=== PATIENT | female | born 1980 | race Asian ===

== ENCOUNTER 2022-05-16 08:37 | Emergency (ER) | payer MEDICARE, SELFPAY ==
[2022-05-16 08:47] VITALS: BP 114/80; PULSE 93; RESP 18; TEMP 36.9; O2SAT 100; BMI 27.8
[2022-05-16 09:34] LABS: Appearance Urine Clear (Clear); Bilirubin Urine Negative (Negative); Blood Urine 2+ (Negative); Color Urine Yellow (Yellow); Glucose Urine Negative (Negative); Ketones Urine Negative (Negative); Leukocyte Esterase Urine Negative (Negative); Nitrite Urine Negative (Negative); Protein Urine Negative (Negative); Specific Gravity Urine 1.015 (1.000-1.030); Urobilinogen Urine 0.2 (0.2-1.0)
[2022-05-16] MEDS: 0.9 % SODIUM CHLORIDE 1000 ml 1,000 ML IV (09:35)
[2022-05-16] MEDS: ONDANSETRON 2 MG/ML inj 4 MG IVP (09:35)
--- NOTE | 2022-05-16 09:45 | ED.GENADULT ---
HPI - General Adult General Chief complaint: Urogenital Problems, Female Stated complaint: possible kidney stones Time Seen by Provider: 05/16/22 08:41 Source: patient Mode of arrival: ambulatory Limitations: no limitations History of Present Illness HPI narrative: 41-year-old female coming in today complaining of pelvic pain. Patient states that she has recurrent kidney stones and this feels like a kidney stone. She states that the pain started 5 days ago in the right flank area and now has traveled into the right groin. She states that her urine is cloudy but has not seen any blood. She states that she vomited this morning and feels nauseated but denies any fevers or chills. She denies any diarrhea. She denies any pain in the upper abdomen. She tells me that she has had 78 kidney stones in the last 13 months and has required multiple basket extractions. She tells me that she rarely comes to the ER however for treatment. She states that when she does come to the ER it is because she just can not manage the pain at home and she receives an IV medication that starts with a D. We discussed imaging also, and the patient states that she generally does not require an abdominal CT scan. She told me that I am welcome to do 1 if I feel that 1 is necessary. We discussed that with the amount of stones that she has had over the last year I would be concerned about scanning her given the amount of radiation that she may be receiving, she states that again she rarely gets an abdominal CT scan. Patient states that she has a seizure disorder for which she takes Keppra Topamax and Lamictal. She says that it is because of these medications that she gets recurrent kidney stones. Related Data Allergies Allergy/AdvReac Type Severity Reaction Status Date / Time bee pollen Allergy Verified 05/16/22 08:44 Review of Systems Status of ROS: Reports: 10 or more systems reviewed and unremarkable except as noted in History and below PFSH PFS Social History Smoking Status: Never smoker Do you use any of these nicotine containing products: None Second hand tobacco smoke exposure: Yes How often do you have a drink containing alcohol: monthly or less How many standard drinks containing alcohol do you have on a typical day: 3 or 4 How often do you have six or more drinks on one occasion: Less than monthly AUDIT-C Alcohol total score: 3 Non-prescribed substance use: denies use service: No Exam Narrative: Exam Narrative: Well-nourished well-developed patient, tearful. Alert and oriented. Answers questions appropriately. Patient speaks in full sentences without needing to catch their breath. HEENT: Normocephalic atraumatic. Pupils are equally round reactive to light. Extraocular muscles are intact. Conjunctivae are moist without any icterus noted. Moist mucous membranes. Posterior pharynx is normal. Neck is soft without any lymphadenopathy or thyromegaly. No masses are appreciated. Cardiovascular: Heart is regular rate and rhythm S1 and S2 are present without any murmurs. Lungs: Clear to auscultation bilaterally no wheezes rhonchi or rales are appreciated. Patient takes deep breaths without any discomfort. Abdomen: Soft and nontender nondistended with normal bowel sounds. No guarding or rebound. No masses or organomegaly appreciated. Patient cries and groans in pain with palpation of the suprapubic area. Extremities: Bilateral lower extremities are without edema. Normal DP and PT pulses. Skin: Well perfused without any obvious rashes. Const: Vital Signs, click to edit/add: Vital Signs - 24 hr 05/16/22 08:47 Temperature 98.5 F Pulse Rate [Pulse Oximeter] 93 Respiratory Rate 18 Blood Pressure [Ri ght Upper Arm] 114/80 Pulse Oximetry 100 Oxygen Delivery Me thod Room Air Course Course Hospital Course: IV was established and IV fluids started. Again, we discussed imaging-at this point patient feels like if we give her fluids she can give this another few days at home to see if the stone will pass on its own. Given that she is not febrile we opted not to do imaging at this time. If her labs come back abnormal we may reconsider this. We discussed pain medication, I did look the patient up in the [place] prescription monitoring web site, it appears that she received 80 tablets of oxycodone 11 days ago. It appears that she receives regular oxycodone prescriptions. She tells me that she does not have any of her oxycodone because she went to [place] to visit her family and she put all of her medications in her suitcase, her suitcase ended up in [place]. She is asking for narcotic pain medicine today. I tell her that I will not be giving her narcotic pain medications today. I did talk about Toradol which she tells me does not work. Unfortunately, given her history of chronic narcotic use I do not feel that giving her IV narcotics is inappropriate at this time. She states that she will accept the Toradol. Blood work was unremarkable. No elevated CRP or white cell count. She did have some blood in her urine. Given her normal creatinine we did go ahead and proceed with the Toradol, we also gave her Zofran. Blood glucose was also slightly low at 50, this came up to 102 after she had some juice. She was asymptomatic from this. Vital Signs Vital signs: Initial Vital Signs Temperature 98.5 F 05/16/22 08:47 Temperature Source Temporal Artery Scan 05/16/22 08:47 Pulse Rate 93 05/16/22 08:47 Pulse Rhythm Regular 05/16/22 08:47 Respiratory Rate 18 05/16/22 08:47 Blood Pressure 114/80 05/16/22 08:47 Blood Pressure Mean 91 05/16/22 08:47 Blood Pressure Position Supine 05/16/22 08:47 Pulse Oximetry 100 05/16/22 08:47 Oxygen Delivery Method Room Air 05/16/22 08:47 Vital Signs Temperature 98.5 F 05/16/22 08:47 Pulse Rate 93 05/16/22 08:47 Respiratory Rate 18 05/16/22 08:47 Blood Pressure 114/80 05/16/22 08:47 Pulse Oximetry 100 05/16/22 08:47 Oxygen Delivery Method Room Air 05/16/22 08:47 Temperature 98.5 F 05/16/22 08:47 Pulse Rate 93 05/16/22 08:47 Respiratory Rate 18 05/16/22 08:47 Blood Pressure 114/80 05/16/22 08:47 Pulse Oximetry 100 05/16/22 08:47 Oxygen Delivery Method Room Air 05/16/22 08:47 Medical Decision Making MDM Narrative Medical decision making narrative: 41-year-old female with recurrent kidney stones. At this time I asked her to call her primary care provider if she wants a refill on her narcotic pain medication. We discussed returning to the ER if she develops fever or intractable vomiting. She does have a urologist and hris administrator that she follows up with regularly, she is instructed to call them today to make an appointment. Patient was agreeable with everything we discussed had no other questions. Lab Data Lab results reviewed: Yes I reviewed the patient's lab results Labs: Lab Results 05/16/22 05/16/22 05/16/22 Range/Units 09:20 09:25 09:35 WBC 7.35 (4.50-11.00) K/uL RBC 4.11 (4.00-5.20) m/uL Hgb 15.0 (12.0-16.0) gm/dL Hct 44.7 (33.0-51.0) % MCV 109 H (80-100) fL MCH 37 H (26-34) pg MCHC 34 (32-36) gm/dL RDW Coeff of Braydon 12.5 (11.5-15.5) % Plt Count 276 (140-440) K/uL Neut % (Auto) 63.0 (42.0-72.0) % Lymph % (Auto) 26.7 (20-44) % [place] % (Auto) 7.5 (0.0-11.0) % Eos % (Auto) 2.3 (0.0-7.0) % Baso % (Auto) 0.4 (0.0-3.0) % Neut # (Auto) 4.63 (1.7-7.0) K/uL Lymph # (Auto) 1.96 (0.90-2.90) K/uL [place] # (Auto) 0.60 (0.00-0.90) K/UL Eos # (Auto) 0.17 (0.00-0.50) K/uL Baso # (Auto) 0.03 (0.00-0.30) K/uL Sodium 141 (135-149) mmol/L Potassium 3.4 L (3.6-5.1) mmol/L Chloride 114 (96-114) mmol/L Carbon Dioxide 17 L (20-32) mmol/L BUN 10 (5-24) mg/dL Creatinine 1.1 (0.5-1.5) mg/dL Estimated Creat Clear 50.27 Estimated GFR 64 ml/min Glucose 50 L (60-115) mg/dL Calcium 9.1 (8.4-10.6) mg/dL Total Bilirubin 0.4 (0.1-1.5) mg/dL Direct Bilirubin 0.0 (0.0-0.5) mg/dL AST 18 (12-35) U/L ALT 16 (4-35) U/L Alkaline Phosphatase 65 (40-150) U/L C-Reactive Protein < 0.5 L (0.5-1.0) mg/dL Total Protein 7.9 (6.0-8.3) g/dL Albumin 4.7 (3.3-5.0) g/dL Lipase 52 (23-300) U/L HCG, Qual Negative (Negative) Urine Color Yellow (Yellow) Urine Appearance Clear (Clear) Urine pH 6.0 (5.0-8.5) Ur Specific [place] 1.015 (1.000-1.030) Urine Protein Negative (Negative) Urine Glucose (UA) Negative (Negative) Urine Ketones Negative (Negative) Urine Blood 2+ A (Negative) Urine Nitrite Negative (Negative) Urine Bilirubin Negative (Negative) Urine Urobilinogen 0.2 (0.2-1.0) Ur Leukocyte Esterase Negative (Negative) Urine RBC 5-10 A (0-2) Urine WBC 2-5 (0-5) Ur Squamous Epith Cells Moderate A (None-Few) Urine Bacteria None (None) Discharge Plan Discharge Clinical Impression: Kidney stone Patient Disposition: Home, Self-Care Condition: Stable Additional Instructions: Follow-up with your primary care provider if you need refills of your pain medication. Follow-up with your urologist this coming week. Return to the emergency department if you develop intractable vomiting or fevers. Follow Up/Referrals: Ketty Osborn [Primary Care Provider] - Stand Alone Forms: CoreFlow Info Instructions
[2022-05-16 09:49] LABS: Squamous Epithelial Cell Urine Moderate (None-Few)
[2022-05-16 09:51] LABS: Basophils Absolute Auto 0.03 K/uL (0.00-0.30); Basophils Percent Auto 0.4 % (0.0-3.0); Eosinophils Absolute Auto 0.17 K/uL (0.00-0.50); Eosinophils Percent Auto 2.3 % (0.0-7.0); Hematocrit 44.7 % (33.0-51.0); Immature Granulocytes Abs Auto 0.01 K/uL (0.00-0.30); Immature Granulocytes Pct Auto 0.1 %; Lymphocytes Absolute Auto 1.96 K/uL (0.90-2.90); Lymphocytes Percent Auto 26.7 % (20-44); Mean Corpuscular HGB Conc 34 gm/dL (32-36); Mean Corpuscular Hemoglobin 37 pg (26-34); Mean Corpuscular Volume 109 fL (80-100); Monocytes Percent Auto 7.5 % (0.0-11.0); Neutrophils Absolute Auto 4.63 K/uL (1.7-7.0); Platelet Count* 276 K/uL (140-440); RDW Coefficient of Variation % 12.5 % (11.5-15.5); Red Blood Count 4.11 m/uL (4.00-5.20); White Blood Count* 7.35 K/uL (4.50-11.00)
[2022-05-16 09:54] LABS: Slide Review Reflex No
[2022-05-16 10:03] LABS: Albumin* 4.7 g/dL (3.3-5.0)
[2022-05-16 10:04] LABS: Chloride* 114 mmol/L (96-114); Potassium* 3.4 mmol/L (3.6-5.1); Sodium* 141 mmol/L (135-149)
[2022-05-16 10:06] LABS: Alanine Aminotransferase* 16 U/L (4-35); Alkaline Phosphatase* 65 U/L (40-150); Aspartate Amino Transferase* 18 U/L (12-35); Bilirubin Total* 0.4 mg/dL (0.1-1.5); Lipase* 52 U/L (23-300); Total Protein* 7.9 g/dL (6.0-8.3)
[2022-05-16 10:07] LABS: Blood Urea Nitrogen* 10 mg/dL (5-24); Carbon Dioxide* 17 mmol/L (20-32); Creatinine* 1.1 mg/dL (0.5-1.5); Est. Creatinine Clearance* 50.27; Estimated Glomerular Filt Rate 64 ml/min
[2022-05-16 10:08] LABS: Calcium* 9.1 mg/dL (8.4-10.6); Glucose* 50 mg/dL (60-115)
[2022-05-16 10:11] LABS: HCG Qualitative* Negative (Negative)
[2022-05-16 10:11] LABS: C Reactive Protein* < 0.5 mg/dL (0.5-1.0)
[2022-05-16] MEDS: KETOROLAC 30 MG/ML inj IVP (10:41)
--- NOTE | 2022-05-16 10:47 | ED.NURSE ---
1039-Glucose 50 on chem panel. Juice given by SHRUTHI Proctor per MD request.
[2022-05-16 11:00] VITALS: BP 115/76; PULSE 87; RESP 12; O2SAT 99
[2022-05-16 11:30] VITALS: BP 114/80; PULSE 93; RESP 18; TEMP 36.9
== END 2022-05-16 11:30 | disposition home or self-care (01) ==
PROVIDERS: Emergency Provider Family Medicine; PCP Internal Medicine
DX: N20.0 Calculus of kidney (principal)
CPT/HCPCS: 36415; 80048; 80076; 81001; 82962; 83690; 84703; 85025; 86140; 87086; 96374; 96375; 99284; J1885; J2405; J7030

== ENCOUNTER 2023-06-19 06:17 | Day surgery (SDC) | payer MEDICARE, SELFPAY ==
[2023-06-19] VITALS (14 sets, daily range): BP systolic 99–131; BP diastolic 77–106; PULSE 71–98; RESP 16–18; TEMP 36.2–36.7; O2SAT 97–100; BMI 28.0
--- OUTSIDE RECORDS SUMMARY | 2023-06-19 06:24 | XMS_ITS | Encounter Summary ---
Author Name Unknown Organization [facility] Address [address] [place] [address] Care Team Providers Care Meat Slicer Name Role Phone Elsewhere, Pcp Primary Care Provider Unavailabl e Reason for Visit * Reason Onset Date Comments Med Question 04/02/2023 Encounter Details Date Type Department Care Team (Late st Contact Info) Description 04/02/2023 Clinical Communication Department of Neurology in [place], [place] [address] [phone] Nakul Canela M.D. [address] [phone] Med Question Social History Tobacco Use Types Packs/Day Years Used Date Smoking Tobacco: Former Cigarettes Q uit: 10/18/2021 Smokeless Tobacco: Never Nutrition Answer Date Recorded Nutrition: EVOO Fat Source Unknown 04/10 Nutrition: Servings of Fruits/Vegetables per Day Not on file 04/10/2021 Dental Answer Date Recorded Dental: Regular Dentist Unknown 04/10/19 Sex and Gender Information Value Date Recorded Sex Assigned at Not on file Gender Identity Not on file Sexual Orientation Not on file documented as of this encounter Miscellaneous Notes * Telephone Encounter - Savannah Hernandez, L.P.N. - 04/02/2023 9:00 AM CST Patient stopped back after appointment today to ask about her butalbital refill. Please advise. Refill pended for review. Thank you. ING MACHINE FEEDER documented in this encounter Plan of Treatment Not on file documented as of this encounter Visit Diagnoses Not on filedocumented in this encounter Care Teams Meat Slicer Relationship Specialty Start Date End Date Elsewhere, Pcp PCP - General Internal Medicine 04/11/21 documented as of this encounter
--- OUTSIDE RECORDS SUMMARY | 2023-06-19 06:24 | XMS_ITS | Encounter Summary ---
Author Name Unknown Organization [facility] Address [address] [place] [address] Care Team Providers Care Data Center Engineer Name Role Phone Elsewhere, Pcp Primary Care Provider Unavailabl e Reason for Visit * Reason Comments Med Refill Encounter Details Date Type Department Care Team (Late st Contact Info) Description 05/22/2023 Refill Department of Neurology in [place], [place] [address] [place] [address] Nakul Canela M.D. [address], [place] [phone] Med Refill Social History Tobacco Use Types Packs/Day Years [...] Telephone Encounter - Savannah Hernandez, L.P.N. - 05/22/2023 9:49 AM CDT Pharmacy refill request for [id number] 50-325-40 mg Last filled 04/09/2023 #10, 0 refills Last visit 04/02/2023 Orders pended for your review. Thank you. documented in this encounter Plan of Treatment Not on file documented as of this encounter Visit Diagnoses Not on filedocumented in this encounter Care Teams Data Center Engineer Relationship Specialty Start Date End Date Elsewhere, Pcp PCP - General Internal Medicine 04/11/21 documented as of this encounter
--- OUTSIDE RECORDS SUMMARY | 2023-06-19 06:24 | XMS_ITS ---
Author Name Unknown Organization [facility] Address [address] [place] [address] Care Team Providers Care Concrete Polisher Name Role Phone Unavailable Unavailable Unavailable Surgery Details Not on file Complications Check Surgery Details section. Procedure Estimated Blood Loss Check Surgery Details section. Procedure Findings Check Surgery Details section. Procedure Specimens Taken Check Surgery Details section.
--- OUTSIDE RECORDS SUMMARY | 2023-06-19 06:24 | XMS_ITS | Encounter Summary ---
Author Name Unknown Organization [facility] Address [address] [place] [address] Care Team Providers Care Social Media Manager Name Role Phone Elsewhere, Pcp Primary Care Provider Unavailabl e Reason for Referral * Outpatient (Routine) - Authorized Specialty Diagnoses / Procedures Referred By Nghia kaufman Referred To Contact Neurology [facility] ([facility]) Nakul Canela M.D. [address], [place] [address] [facility] Referral ID Status Reason Start Date Expiration Date V isits Requested Visits Authorized [id number] Authorized 04/02/2023 10/01/2024 1 1 ERTY AND CASUALTY INSURANCE AGENT Reason for Visit * Reason Comments Seizures * Outpatient (Routine) - Closed Specialty Diagnoses / Procedures Referred By Nghia kaufman Referred To Contact Neurology Isaias Ernandez M.D., M.P.H. [address] [place] [address] [facility] Referral ID Status Reason Start Date Expiration Date Visits Re quested Visits Authorized [id number] Closed 12/18/2021 12/17/2024 1 1 Encounter Details Date Type Department Care Team (Latest Contact Info) Description 04/02/2023 8:00 AM PROPERTY AND CASUALTY INSURANCE AGENT Comprehensive Visit Department of Neurology in [place], [place] [address], [place] [address] Nakul Canela M.D. [address] [place] [phone] [facility] ([facility]) (Primary Dx) Social History Tobacco Use Types Packs/Day Years Used Date Smoking Tobacco: Former Cigarettes Q uit: 10/18/2021 Smokeless Tobacco: Never Tobacco Cessation:Counseling Given: Not Answered Nutrition Answer Date Recorded Nutrition: EVOO Fat Source Unknown 04/10 Nutrition: Servings of Fruits/Vegetables per Day Not on file 04/10/2021 Dental Answer Date Recorded Dental: Regular Dentist Unknown 04/10/19 Sex and Gender Information Value Date Recorded Sex Assigned at Not on file Gender Identity Not on file Sexual Orientation Not on file documented as of this encounter Last Filed Vital Signs Vital Sign Reading Time Taken Comments Blood Pressure 130/89 04/02/2023 8:01 AM PROPERTY AND CASUALTY INSURANCE AGENT Pulse 73 04/02/2023 8:01 AM PROPERTY AND CASUALTY INSURANCE AGENT Temperature - - Respiratory Rate - - Oxygen Saturation - - Inhaled Oxygen Concentration - - Weight 67.7 kg (149 lb 4 oz) 04/02/2023 8:01 AM PROPERTY AND CASUALTY INSURANCE AGENT Height 149.9 cm (4' 11.02) 04/02/2023 8:[address] Body Mass Index 30.13 04/02/2023 8:01 AM PROPERTY AND CASUALTY INSURANCE AGENT documented in this encounter Progress Notes * Nakul Canela M.D. - 04/02/2023 8:00 AM CST SUBJECTIVE CHIEF COMPLAINT / REASON FOR VISIT Ofe Perez is a 42 y.o. female who presents for evaluation of Seizures. 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 Please recall she was previously seen by Dr. Ernandez in [place] and was also referred to epilepsy Clinic in [place] seen by Dr. Pascual. She apparently has several different types of spells thathave occurred since a prolonged hospitalization in 2007. She was previously on three different antiseizure medications at fairly substantial doses but yet she was continuing to have events. A routineEEG was performed in June of 2021 which captured an event of foot shaking which spread to the rest of the body that was nonepileptic in nature. In that result she was subsequently referred to epilepsy[facility]inic where there there was a decision to pursue epilepsy monitoring unit evaluation to clarify ifthere were both epileptic and nonepileptic spells or just purely nonepileptic events. Unfortunatelythat was never completed as her insurance would not cover the inpatient hospitalization. In the interim she continues on substantial doses of Keppra, lamotrigine and topiramate. She continues to struggle with kidney stones while on topiramate but given its affects on her spells she wouldlike to continue it is not decrease the dose. She voices that it has actually been about two monthssince she has had a spell. REVIEW OF SYSTEMS REVIEW OF SYSTEMS OBJECTIVE PHYSICAL EXAM General: Female in her 40s, alert, attentive, no acute distress Vitals: BP 130/89, HR 73 Neuro: Alert and interactive. Cranial nerves grossly symmetric. Antigravity strength all extremities. Casual gait is normal. For details of the neurologic examination, please see the neurologic examination form. ASSESSMENT / PLAN #1 [facility]) I discussed my thoughts with her regarding her prior evaluation. It does sound as though EMU stay afor spell classification was recommended however due to insurance difficulties this did not get completed. She was subsequently switched insurance companies and so I did discuss with her trying to see if our epilepsy colleagues would be able to schedule an EMU stay at this point. In the interim we will continue her antiseizure medications at their current doses. We again discussed tapering topiramate given her ongoing issues with kidney stones but she would prefer to keep the dose where it is and do with the kidney stones as opposed to dealing with more spells. Plan to see her back in one year time or sooner depending on timing of EMU evaluation. Questions answered to the best my ability encouraged her to reach out to our office with questions or concerns. ERTY AND CASUALTY INSURANCE AGENT documented in this encounter Plan of Treatment Scheduled Referrals Name Type Priority Associated Diagnoses Orde r Schedule Neurology - Epilepsy consult (clinic) Outpatient Referral Routine [facility] ([facility]) Expected: 04/02/2023 (Approximate), Expires: 06/30/2024 documented as of this encounter Visit Diagnoses Diagnosis [facility] ([facility])- Primary documented in this encounter Care Teams Social Media Manager Relationship Specialty Start Date End Date Elsewhere, Pcp PCP - General Internal Medicine 04/11/21 documented as of this encounter
--- OUTSIDE RECORDS SUMMARY | 2023-06-19 06:24 | XMS_ITS | Encounter Summary ---
Author Name Unknown Organization [facility] Address [address] [place] [address] Care Team Providers Care Pediatric Audiologist Name Role Phone Elsewhere, Pcp Primary Care Provider Unavailabl e Reason for Visit * Reason Comments Med Refill Encounter Details Date Type Department Care Team (Late st Contact Info) Description 04/08/2023 Refill Department of Neurology in [place], [place] [address] [place] [address] Nakul Canela M.D. [address] [phone] Med Refill Social History Tobacco Use Types [...] Telephone Encounter - Savannah Hernandez, L.P.N. - 04/09/2023 11:11 AM CST Unable to reach patient by phone, call would not go through. No other numbers listed for patient. Portal message sent. CT CUSTOMER SERVICE REPRESENTATIVE * Telephone Encounter - Carmen Medina - 04/08/2023 9:02 AM CST Images from the original note were not included. Nurse review: Med Refill Team is unable to forward request to provider; Drug Change Request Primary Provider: ELSEWHERE, PCP CT CUSTOMER SERVICE REPRESENTATIVE documented in this encounter Plan of Treatment Not on file documented as of this encounter Visit Diagnoses Not on filedocumented in this encounter Care Teams Pediatric Audiologist Relationship Specialty Start Date End Date Elsewhere, Pcp PCP - General Internal Medicine 04/11/21 documented as of this encounter
--- OUTSIDE RECORDS SUMMARY | 2023-06-19 06:24 | XMS_ITS | Clinical Summary ---
Author Name Unknown Organization [facility] Address [address] [place] [address] Care Team Providers Care Electrical Designer Name Role Phone Elsewhere, Pcp Primary Care Provider Unavailabl e Source Comments Patient records contain information from all sites at [facility]. For routine questions regarding patient records, call [phone] during business hours, M-F 8:00 AM - 5:00 PM Central Time. Record requests for emergency care only can be directed to [phone] at any time.[facility] Allergies Active Allergy Reactions Criticality Noted Date Comments Bee Pollen Edema (Reselect Reaction) High 10/24/2021 Mold Other (see comments) 06/10/2022 Venom-Wasp Other (see comments),Edema (Reselect Reaction) High 04/11/2021 Swells up Requires epi pen. Swells up Requires epi pen. Medications Medication Sig Dispensed Refills Start Date End Date Status tamsulosin (FLOMAX) 0.4 mg 24 hr capsule Take 0.4 mg by mouth daily. 2 Active ondansetron (ZOFRAN) 4 mg tablet Take 4 mg by mouth as needed. 2 Active escitalopram (LEXAPRO) 10 mg tablet Take 10 mg by mouth daily. 2 Active cyanocobalamin (VITAMIN B12) 500 mcg tablet Take 1,000 mcg by mouth daily. 2 Active ascorbic acid, vitamin C, (VITAMIN C) 1,000 mg tablet Take 1,000 mg by mouth daily. 2 Active biotin 10,000 mcg capsule Take 10,000 mcg by mouth daily. 2 Active ciprofloxacin (CIPRO) 500 mg tablet Take 500 mg by mouth 2 (two) times a day. for 10 days 2 Active EPINEPHrine 0.3 mg/0.3 mL injection syringe INJECT 0.3 MG INTRAMUSCULAR ONE TIME FOR 1 DOSE 2 Active nitrofurantoin monohydrate (MACROBID) 100 mg capsule 2 Active oxyCODONE-acetam inophen (PERCOCET) 5-325 mg per tablet TAKE 1 TABLET BY MOUTH EVERY 4 HOURS NEEDED FOR PAIN MAX OF 4000 MG OF ACETAMINOPHEN IN 24 HOURS 2 Active naloxone (NARCAN) 4 mg/actuation nasal spray ADMINISTER A SINGLE SPRAY OF NARCAN IN ONE NOSTRIL. REPEAT AFTER 3 MINUTES IF NO OR MINIMAL RESPONSE. 2 Active rizatriptan (MAXALT) 10 mg tablet Take 1 tablet (10 mg total) by mouth as needed for migraine. 18 tablet 11 2 Active carisoprodoL (SOMA) 350 mg tablet Take 350 mg by mouth 4 (four) times a day as needed for muscle spasms. Active eszopiclone (LUNESTA) 1 mg tablet Take 1 mg by mouth at bedtime as needed for sleep. 4 Active allopurinoL (ZYLOPRIM) 300 mg tablet Take 300 mg by mouth daily. Active levETIRAcetam (KEPPRA) 1,000 mg tablet Take 2 tablets (2,000 mg total) by mouth 2 (two) times a day. 360 tablet 3 4 04/01/19 25 Active lamoTRIgine (LaMICtaL) 100 mg tablet Take 2 tablets (200 mg total) by mouth 2 (two) times a day. 360 tablet 3 4 04/01/19 25 Active topiramate (TOPAMAX) 100 mg tablet Take 1 tablet (100 mg total) by mouth 3 (three) times a day. 270 tablet 3 4 04/01/19 25 Active acetaminophen-co deine (TYLENOL #3) 300-30 mg per tablet Take 2 tablets by mouth every 4 (four) hours as needed for pain. Active cefdinir (OMNICEF) 300 mg capsule Take 300 mg by mouth 2 (two) times a day before breakfast and dinner. Active diazePAM (VALIUM) 5 mg tablet Take 5 mg by mouth 2 (two) times a day as needed for seizures. Active LORazepam (ATIVAN) 1 mg tablet Take 1 mg by mouth 3 (three) times a day as needed for anxiety. Active butalbital-aceta minophen-caff (Esgic) 50-325-40 mg per tablet TAKE 1 TABLET BY MOUTH EVERY 6 HOURS NEEDED FOR HEADACHE 8 tablet 4 Active butalbital-aceta minophen-caff (ESGIC) 50-325-40 mg per tablet Take 1 tablet by mouth every 6 (six) hours as needed for headaches. 10 tablet 4 05/25/19 24 Discontinued Active Problems Problem Noted Date Diagnosed Date Nontraumatic Intracerebral Hemorrhage Unspecifie d 09/17/2021 Seizure Disorder 09/17/2021 Aneurysm Cerebral Unruptured 06/07/2021 Chronic Kidney Disease (CKD) , Stage 3a Glomerular Filtration Rate (GFR) 45 To 59 06/07/2021 07/29/2022 Other Specified Abnormal Findings Of Blood Chemi stry 05/14/2021 07/29/2022 Overview: Need records Deficiency Vitamin B 04/15/2021 07/29/2022 Depression Major Recurrent Mild 04/15/2021 07/29/2022 Migraine Headache Classic 04/11/2021 Migraine Headache 04/11/2021 Stone Kidney 04/20/2020 07/29/2022 Encounters Date Type Department Care Team Description 05/22/2023 Refill Department of Neurology in [place], [place] [address] [place] [address] Nakul Canela M.D. Med Refill 04/08/2023 Refill Department of Neurology in [place], [place] [address] [place] [address] Nakul Canela M.D. Med Refill 04/02/2023 8:00 AM RADIO INSTALLER Comprehensive Visit Department of Neurology in [place], [place] [address] [place] [address] Nakul Canela M.D. [facility] ([facility]) (Primary Dx) 04/02/2023 Documentation Department of Neurology in [place], [place] [address] [place] [address] Murray Pascual M.D. 04/02/2023 Clinical Communication Department of Neurology in [place], [place] [address] [place] [address] Nakul Canela M.D. Med Question from Last 3 Months Immunizations Name Administration Dates Next Due Influenza, Injectable, Quadrivalent 02/17/2016 influenza vaccine quad (FLUZ ONE/FLUARIX) (6 months and older)(PF) 11/28/2021 Social History Tobacco Use Types Packs/Day Years [...] on file Sexual Orientation Not on file Last Filed Vital Signs Vital Sign Reading Time Taken Comments Blood Pressure 130/89 04/02/2023 8:01 AM RADIO INSTALLER Pulse 73 04/02/2023 8:01 AM RADIO INSTALLER Temperature - - Respiratory Rate - - Oxygen Saturation - - Inhaled Oxygen Concentration - - Weight 67.7 kg (149 lb 4 oz) 04/02/2023 8:01 AM RADIO INSTALLER Height 149.9 cm (4' 11.02) 04/02/2023 8:[address] Body Mass Index 30.13 04/02/2023 8:01 AM RADIO INSTALLER Plan of Treatment Health Maintenance Due Date Last Done Comments Depression Monitoring (PHQ-9) 1979 HIV Screening 1979 Hepatitis C Screening 1979 Lipid (Cholesterol) Screening 1979 Mammogram 1979 DTaP,Tdap,and Td Vaccines (1 - Tdap) 10/03/1998 Hepatitis B Vaccines (1 of 3 - 19+ 3-dose series) 10/03/1998 Zoster Vaccines (1 of 2) 10/03/1998 COVID-19 Vaccine (2022-24 season) 2022 Influenza Vaccine Completed 03/04/2023, , 10/30/2020, Additional history exists HPV Vaccines Aged Out No longer eligi ble based on patient's age to complete this topic Pneumococcal vaccine (0-64 years) Aged Out No longer eligible based on patient's age to complete this topic Care Teams Electrical Designer Relationship Specialty Start Date End Date Elsewhere, Pcp PCP - General Internal Medicine 04/11/21
--- OUTSIDE RECORDS SUMMARY | 2023-06-19 06:24 | XMS_ITS | Encounter Summary ---
Author Name Unknown Organization [facility] Address [address] [place] [address] Care Team Providers Care Ethical Hacker Name Role Phone Elsewhere, Pcp Primary Care Provider Unavailabl e Reason for Referral * Outpatient (Routine) - Authorized Specialty Diagnoses / Procedures Referred By Contac t Referred To Contact Neurology Diagnoses [facility] ([facility]) Murray Pascual M.D. [address] [place] [phone] [facility] Referral ID Status Reason Start Date Expiration Date V isits Requested Visits Authorized [id number] Authorized 04/02/2023 10/01/2024 1 1 Scheduling Instructions Arrange after EMU admission K LOADER AND UNLOADER * Outpatient (Routine) - Pending Review Specialty Diagnoses / Procedures Referred By Contac t Referred To Contact Diagnoses [facility] ([facility]) Procedures Epilepsy monitoring unit (EMU) admission Murray Pascual M.D. [address] [place] [phone] [facility] Referral ID Status Reason Start Date Expiration Date V isits Requested Visits Authorized [id number] Pending Review 04/02/2023 04/01/2024 1 1 K LOADER AND UNLOADER Encounter Details Date Type Department Care Team ([facility] st Contact Info) Description 04/02/2023 Documentation Department of Neurology in [place], [place] [address] [place] [phone] Murray Pascual M.D. [address] [place] [address] Social History Tobacco Use Types Packs/Day Years [...] on file documented as of this encounter Progress Notes * Murray Pascual M.D. - 04/02/2023 10:04 AM CST Discussed via messaging with Dr. Canela, patient not seen. I saw in 2021 because of frequent recurrent spells. 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 We agreed on an EMU evaluation for classification of her entire set of events. This did not end up taking place due to insurance issues. Her insurance has changed. Her spells per Dr. Canela's evaluation have been reduced, but remain intermittently present. She is on 3 medications, and in particular has had problems with kidney stones related to topiramate but has been inclined to stay on it because of spell reduction. With her insurance change he discussed re-establishing the EMU appointment for spell classification and she was open to that. This would include medication tapering as it is questionable whether any of her prior spells are related to epilepsy or not. I have placed a new order. I would also plan to follow up with her afterwards. In terms of other background, she reported a very prolonged hospitalization in 2007 for which obtaining records has been elusive, and she reported being diagnosed with seizures as part of that. She has also reported previously having an aneurysm found and coiled, though an outside catheter angiogram report from 2010 reports no evidence of an aneurysm or coil, and on our brain MRI from the fall we also see no evidence of aneurysm or coil. K LOADER AND UNLOADER documented in this encounter Plan of Treatment Scheduled Orders Name Type Priority Associated Diagnoses Orde r Schedule Epilepsy monitoring unit (EMU) admission Neurology Routine [facility] ([facility]) Expected: 04/02/2023 (Approximate), Expires: 10/01/2023 Scheduled Referrals Name Type Priority Associated Diagnoses Orde r Schedule Neurology office visit (clinic) Outpatient Referral Routine [facility] ([facility]) Expected: 04/10/2023, Expires: 06/30/2024 documented as of this encounter Visit Diagnoses Diagnosis [facility] ([facility])- Primary documented in this encounter Care Teams Ethical Hacker Relationship Specialty Start Date End Date Elsewhere, Pcp PCP - General Internal Medicine 04/11/21 documented as of this encounter
--- OUTSIDE RECORDS SUMMARY | 2023-06-19 06:24 | XMS_ITS | Referral Summary ---
Author Name Unknown Organization [facility] Address [address] [place] [address] Care Team Providers Care Outside Cutter Hand Name Role Phone Elsewhere, Pcp Primary Care Provider Unavailabl e Source Comments Patient records contain information from all sites at [facility]. For routine questions regarding patient records, call [phone] during business hours, M-F 8:00 AM - 5:00 PM Central Time. Record requests for emergency care only can be directed to [phone] at any time.[facility] Encounters Date Type Department Care Team Description 05/22/2023 Refill Department of Neurology in [place], [place] [address] [place] [address] Nakul Canela M.D. Med Refill 04/08/2023 Refill Department of Neurology in [place], [place] [address] [place] [address] Nakul Canela M.D. Med Refill 04/02/2023 Documentation Department of Neurology in [place], [place] [address] [place] [address] Murray Pascual M.D. 04/02/2023 Clinical Communication Department of Neurology in [place], [place] [address] [address] Nakul Canela M.D. Med Question 04/02/2023 8:00 AM LINEN ROOM SUPERVISOR Comprehensive Visit Department of Neurology in [place], [place] [address] [place] [phone] Nakul Canela M.D. [facility] ([facility]) (Primary Dx) from Last 3 Months Allergies Active Allergy Reactions Criticality Noted Date [...] Migraine Headache 04/11/2021 Stone Kidney 04/20/2020 07/29/2022 Immunizations Name Administration Dates Next Due Influenza, [...] Comments Blood Pressure 130/89 04/02/2023 8:01 AM LINEN ROOM SUPERVISOR Pulse 73 04/02/2023 8:01 AM LINEN ROOM SUPERVISOR Temperature - - Respiratory Rate - - Oxygen Saturation - - Inhaled Oxygen Concentration - - Weight 67.7 kg (149 lb 4 oz) 04/02/2023 8:01 AM LINEN ROOM SUPERVISOR Height 149.9 cm (4' 11.02) 04/02/2023 8:[address] Body Mass Index 30.13 04/02/2023 8:01 AM LINEN ROOM SUPERVISOR Plan of Treatment Not on file Care Teams Outside Cutter Hand Relationship Specialty Start Date End Date Elsewhere, Pcp PCP - General Internal Medicine 04/11/21
--- OUTSIDE RECORDS SUMMARY | 2023-06-19 06:24 | XMS_ITS | Clinical Summary ---
Author Name Unknown Organization [facility] Address [place], [place] [address] Care Team Providers Care Inorganic Chemistry Professor Name Role Phone AnuragKetty franks Marilyn FOOTE Primary Care Provider Jayce Ernandez MD Unavailable [phone] Jose Ho MD Unavailable [phone] Manuel Dickson MD Unavailable [phone] Allergies Active Allergy Reactions Criticality Noted Date Comments Bee Pollen Edema High 10/24/2021 Mold Runny Nose Low 06/10/2022 Venom-Wasp Other - Describe In Comment Field High 04/11/2021 Swells up Requires epi pen. Medications Medication Sig Dispensed Refills Start Date End Date Status ascorbic acid, vitamin C, (VITAMIN C) 1,000 mg tablet Take 1 Tablet (1,000 mg) by mouth once daily. 1 Tablet 2 Active cyanocobalamin (VITAMIN B12) 500 mcg tablet Take 2 Tablets (1,000 mcg) by mouth once daily. 180 Tablet 3 2 Active EPINEPHrine (EPIPEN) 0.3 mg/0.3 mL auto-injectorInd ications:Bee sting allergy Inject 0.3 mg intramuscular each time if needed for Allergic Reaction. 2 Each 2 Active naloxone (NARCAN) 4 mg/actuation nasal spray ADMINISTER A SINGLE SPRAY OF NARCAN IN ONE NOSTRIL. REPEAT AFTER 3 MINUTES IF NO OR MINIMAL RESPONSE. 2 Active Butalbital-Aceta minophen-Caff 50-300-40 mg cap Take by mouth every 4 hours. 0 2 Active tamsulosin (FLOMAX) 0.4 mg capsuleIndicatio ns:Kidney stone Take 1 Capsule (0.4 mg) by mouth once daily after a meal. 90 Capsule 3 3 Active escitalopram oxalate (LEXAPRO) 10 mg tabletIndication s:Major depressive disorder, recurrent, mild (HC) Take 1 Tablet (10 mg) by mouth every morning. 90 Tablet 3 3 Active lamoTRIgine (LAMICTAL) 100 mg tabletIndication s:Seizure disorder (HC) Take 2 Tablets (200 mg) by mouth two times daily. 360 Tablet 3 3 Active levETIRAcetam (KEPPRA) 1,000 mg tabletIndication s:Seizure disorder (HC) Take 2 Tablets (2,000 mg) by mouth two times daily. 360 Tablet 3 3 Active topiramate (TOPAMAX) 100 mg tabletIndication s:Seizure disorder (HC) Take 2 Tablets (200 mg) by mouth three times daily. 540 Tablet 3 3 Active ondansetron (ZOFRAN) 4 mg tabletIndication s:Kidney stone Take 1 Tablet (4 mg) by mouth every 8 hours if needed for Nausea/Vomiting. 30 Tablet 4 3 Active allopurinoL (ZYLOPRIM) 300 mg tabletIndication s:Recurrent kidney stones Take 1 Tablet (300 mg) by mouth once daily. Take 1 daily for stone prevention 90 Tablet 3 3 Active cyclobenzaprine (FLEXERIL) 5 mg tabletIndication s:Back spasm Take 1-2 Tablets (5-10 mg) by mouth three times daily. 30 Tablet 3 Active tiZANidine (ZANAFLEX) 4 mg tabletIndication s:Back spasm Take 1 Tablet (4 mg) by mouth every 8 hours if needed for Muscle Spasm. 40 Tablet 3 Active eszopiclone (LUNESTA) 1 mg tabletIndication s:Insomnia, idiopathic Take 1 Tablet (1 mg) by mouth at bedtime if needed for Sleep. 30 Tablet 5 4 Active carisoprodoL (SOMA) 350 mg tabletIndication s:Lumbar paraspinal muscle spasm Take 1 Tablet (350 mg) by mouth 4 times daily if needed for Muscle Spasm. 120 Tablet 2 4 Active diazePAM (VALIUM) 5 mg tablet Take 5 mg by mouth 2 times daily if needed. Active rizatriptan (MAXALT) 10 mg tabletIndication s:Migraine syndrome Take 1 Tablet (10 mg) by mouth every 2 hours if needed for Migraine. Give at minimum 2hrs apart. Max Dose: 30mg per 24hrs. 12 Tablet 12 4 Active oxyCODONE-acetam inophen (Percocet) 5-325 mg per tabletIndication s:Controlled substance agreement signed,Recurrent kidney stones Take 1 Tablet by mouth every 4 hours if needed for Pain. Max acetaminophen dose: 4000mg in 24 hrs. 90 Tablet 4 Active acetaminophen-ca ffeine-butalbita l (FIORICET) 325-40-50 mgIndications:Mi graine syndrome Take 1 Tablet by mouth every 4 hours if needed for Migraine. Max 6 doses per day. Max acetaminophen dose 4000mg in 24 hrs. 40 Tablet 1 4 Active clindamycin 1% (CLEOCIN-T) 1 % gelIndications:A cne, unspecified acne type Apply topically to affected area(s) two times daily. 60 g 2 4 Active rizatriptan (MAXALT) 10 mg tabletIndication s:Migraine syndrome Take 1 Tablet (10 mg) by mouth every 2 hours if needed for Migraine. Give at minimum 2hrs apart. Max Dose: 30mg per 24hrs. 12 Tablet 3 3 024 Discontinued(Re order (E-cancel not sent)) methylPREDNISolo ne (Medrol, Sai,) 4 mg tabletIndication s:Acute left-sided low back pain with left-sided sciatica Take by mouth as instructed per packaging. 21 Tablet 3 024 Discontinued(*P atient states no longer taking) acetaminophen-ca ffeine-butalbita l (FIORICET) 325-40-50 mgIndications:Mi graine syndrome Take 1 Tablet by mouth every 4 hours if needed for Migraine. Max 6 doses per day. Max acetaminophen dose 4000mg in 24 hrs. 40 Tablet 4 024 Discontinued(Re order (E-cancel not sent)) carisoprodoL (SOMA) 350 mg tabletIndication s:Lumbar paraspinal muscle spasm Take 1 Tablet (350 mg) by mouth 4 times daily if needed for Muscle Spasm. 120 Tablet 2 4 024 Discontinued(Re order (E-cancel not sent)) oxyCODONE-acetam inophen (Percocet) 5-325 mg per tabletIndication s:Controlled substance agreement signed,Recurrent kidney stones Take 1 Tablet by mouth every 4 hours if needed for Pain. Max acetaminophen dose: 4000mg in 24 hrs. 90 Tablet 4 024 Discontinued(Re order (E-cancel not sent)) rizatriptan (MAXALT) 10 mg tabletIndication s:Migraine syndrome Take 1 Tablet (10 mg) by mouth every 2 hours if needed for Migraine. Give at minimum 2hrs apart. Max Dose: 30mg per 24hrs. 12 Tablet 4 024 Discontinued(Re order (E-cancel not sent)) oxyCODONE-acetam inophen (Percocet) 5-325 mg per tabletIndication s:Controlled substance agreement signed,Recurrent kidney stones Take 1 Tablet by mouth every 4 hours if needed for Pain. Max acetaminophen dose: 4000mg in 24 hrs. 90 Tablet 4 024 Discontinued(*M edication adjustment) rx oxyCODONE-acetam inophen, 5-325 mg, (PERCOCET 5-325) tablet (ED DC MED)Indications: Closed trimalleolar fracture of left ankle, initial encounter Take 1 Tablet by mouth every 4 hours if needed (Pain). 4 024 Discontinued oxyCODONE-acetam inophen (PERCOCET) 5-325 mg per tabletIndication s:Closed trimalleolar fracture of left ankle, initial encounter Take 1 Tablet by mouth every 4 hours if needed for Pain. Max acetaminophen dose: 4000mg in 24 hrs. 10 Tablet 4 024 Discontinued(*M edication adjustment) rx oxyCODONE-acetam inophen, 5-325 mg, (PERCOCET 5-325) tablet (ED DC MED)Indications: Closed trimalleolar fracture of left ankle, initial encounter Take 1 Tablet by mouth every 4 hours if needed (Pain). 4 Tablet 4 024 Discontinued(*M edication adjustment) Knee WalkerIndication s:Closed fracture of left ankle, initial encounter For home use. *Note that item is a rental.* Height: 5' Weight: 144 lbs Diagnosis: left ankle fracture Length of need: 3 months 1 Each 4 024 Active Problems Problem Noted Date Diagnosed Date Insomnia, idiopathic 03/04/2023 Stage 3a chronic kidney disease 06/07/2021 Controlled substance agreement signed 06/07/2021 Overview: Signed on 06/07/21. Percocet 5/325 #90 per month. Treating recurrent Kidney stones. Following with nephrology. Recurrent kidney stones 06/07/2021 COVID-19 vaccination declined 06/07/2021 Brain aneurysm 06/07/2021 Abnormal blood creatinine level 05/14/2021 Overview: Need records Vitamin B deficiency 04/15/2021 Migraine syndrome 04/15/2021 Major depressive disorder, recurrent, mild 04/15 Kidney stones Seizure disorder Resolved Problems Problem Noted Date Diagnosed Date Resolved Date Family history of cerebral aneurysm 04/15/2021 05/10/2021 Encounters Date Type Department Care Team Description 06/18/2023 Travel 06/17/2023 4:00 PM CDT Preop Visit [facility] [address] [place] [address] Ketty Osborn, Pre-Op Exam ((S82.852A) Trimalleolar fracture of ankle, closed, left, initial encounter (primary encounter diagnosis)/(S82.892A ) Closed fracture of left ankle, initial encounter/Surgery Thursday DR. Garcia) 06/16/2023 11:48 AM CDT - 06/16/2023 11:59 PM CDT Hospital Encounter [facility] [address] [place] [address] Esteban Santiago, PEDRO Trimalleolar fracture of ankle, closed, left, initial encounter 06/16/2023 10:15 AM CDT Office Visit [facility] [address] [facility] [place] [address] Esteban Santiago DPM Consult (Left ankle fracture) 06/16/2023 Telephone [facility] [address] [place] [address] Ketty Osborn DO Appointment 06/16/2023 Travel 06/15/2023 Travel 06/14/2023 Telephone [facility] [address] [place] [address] Esteban Santiago DPM Appointment Request (Urgent - severe symptom Appt Request. Broken left ankle.) 06/13/2023 12:28 AM CDT - 06/13/2023 7:[address] [facility] [address] [place] [address] Guille Vizcaino MD Closed trimalleolar fracture of left ankle, initial encounter (Primary Dx) Discharge Disposition: Home Self Care 06/13/2023 Travel 06/08/2023 7:30 AM CDT Phone Office Visit [facility] [address] [place] [address] Ketty Osborn DO Medication Management (patient is in [place]) 06/08/2023 Travel 05/31/[address] [address] Ketty Osborn DO Refill Request (carisoprodoL (SOMA) 350 mg tablet) 05/23/[address] [address] Ketty Osborn DO Refill Request (acetaminophen-caffe ine-butalbital (FIORICET) 325-40-50 mg) 05/21/[address] [address] Ketty Osborn DO Refill Request (rizatriptan 10mg tab) 05/12/[address] [address] Ketty Osborn DO Refill Request 05/10/[address] [address] Ketty Osborn DO Refill Request (butal/acetamn/cf 50-325-40 tab/eszopiclone 1mg tab) 04/21/2023 12:50 PM ASSOCIATE DOCTOR Phone Office Visit [address] [address] Lashonda Ruelas NP Phone Visit; Throat Pain/problem (Sore throat started yesterday, daughter has strep ); Ear Problem (Left ear pain ) 04/21/2023 Nurse Triage [address] [address] Ketty Osborn DO Throat Pain/problem 04/07/[address] [address] Ketty Osborn DO Refill Request (Eszopiclone) from Last 3 Months Immunizations Name Administration Dates Next Due Hepatitis A (Peds) 11/11/2017 Influenza, IIV4 03/04/2023,11/28/2021 Family History Medical History Relation Name Comments SIDS Brother Aneurysm Mother Nephrolithiasis Mother Aneurysm Sister 1 Heart attack Sister 3 Relation Name Status Comments Brother Father Alive Mother Alive Sister 1 Alive Sister 2 Alive Sister 3 Social History Tobacco Use Types Packs/Day Years Used Date Smoking Tobacco: Some Days Cigarettes 1 20 Started: 10/20/2001; Last attempted to quit: 10/20/2021 Passive Smoke Exposure: Past Smokeless Tobacco: Never Tobacco Cessation:Ready to Q uit: Not Asked; Counseling Given: Not Answered Comments:8 cigs a day - She quit on 10/20/2021 nicotine patch. some cigarettes since the fall (6 cigs) Passive Exposure Comments:dad and mom smoked in child [facility] life Alcohol Use Standard Drinks/Week Comments Never 0 (1 standard drink = 0.6 oz pur e alcohol) PHQ-2 Answer Date Recorded PHQ-2 TOTAL SCORE 0 02/12/2022 Social Connections Answer Date Recorded Frequency of Communication with Friends and Fami ly 0 02/05/2023 Financial Resource Strain Answer Date R ecorded Difficulty of Paying Living Expenses 3 02/05/2023 Difficulty of Paying Living Expenses Not on file 02/05/2023 Food Insecurity Answer Date Recorded Worried About Running Out of Food in the Last Ye ar 1 02/05/2023 Transportation Needs Answer Date Record ed Lack of Transportation (Medical) 1 02/05/2023 Housing Stability Answer Date Recorded Unable to Pay for Housing in the Last Year 1 02/05/2023 Sex and Gender Information Value Date Recorded Sex Assigned at Not on file Gender Identity Not on file Sexual Orientation Not on file Obstetrics History Last Filed Vital Signs Vital Sign Reading Time Taken Comments Blood Pressure 126/78 06/17/2023 4:29 PM CDT Pulse 94 06/17/2023 4:29 PM CDT Temperature 36.7 ??C (98 ??F) 06/13/2023 12:37 AM CDT Respiratory Rate 16 06/17/2023 4:29 PM CDT Oxygen Saturation 96% 06/17/2023 4:29 PM CDT Inhaled Oxygen Concentration - - Weight 65.3 kg (144 lb) 06/17/2023 4:29 PM CDT Height 152.4 cm (5') 06/17/2023 4:29 PM CDT Body Mass Index 28.12 06/17/2023 4:29 PM CDT Plan of Treatment Upcoming Encounters Date Type Department Care Team (Late st Contact Info) Description 06/19/2023 6:30 AM CDT Office Visit [facility] [address] [place] [address] Esteban Santiago, DPJulia [address] [place] [address] 06/23/2023 9:30 AM CDT Office Visit [facility] [address] [place] [phone] Esteban Santiago DPM [address] [place] [address] 07/02/2023 10:00 AM CDT Office Visit [facility] [address] [place] [phone] Esteban Santiago, PEDRO [address] [place] [address] 07/30/2023 9:30 AM CDT Office Visit [facility] [address] [place] [address] Esteban Santiago DPM [address] [place] [address] Health Maintenance Due Date Last Done Comments Pneumococcal series for age 6-64 (1 of 2 - PCV) 10/03/1985 Tdap 10/03/1990 HIV for age 15-65 10/03/1994 Hepatitis C screening for ag e 18-79 10/03/1997 Tetanus booster 1999 COVID-19 vaccine series ( season) 2022 Depression screening for age 12+ 02/12/2023 02/12/2022, 04/10/2021, 04/10/2021, Additional history exists Influenza for age 9-49 10/18/2023 03/04/2023, 2021 BMI (ht and wt on same day) for age 18+ 06/16/2024 06/17/2023, 06/16/2023, 03/04/2023, Additional history exists Procedures Procedure Name Priority Date/Time Associated Diagnosis Comments CBC WITH AUTO DIFFERENTIAL Routine 06/17/2023 5:50 PM CDT Preoperative general physical examination 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, subsequent encounter COMP METABOLIC PANEL Routine 06/17/2023 5:50 PM CDT Preoperative general physical examination 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, subsequent encounter CBC WITH AUTO DIFFERENTIAL Routine 06/17/2023 5:50 PM CDT Preoperative general physical examination 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, subsequent encounter CT ANKLE LEFT WO STAT 06/16/2023 12:0 3 PM CDT Trimalleolar fracture of ankle, closed, left, initial encounter MODERATE SEDATION Routine 06/13/2023 7:1 2 AM CDT FRACTURE AND DISLOCATION Routine 06/13/2023 7:10 AM CDT XR ANKLE 2 VIEWS LEFT PORTABLE STAT 06/13/2023 6:40 AM CDT XR ANKLE 2 VIEWS LEFT PORTABLE STAT 06/13/2023 6:20 AM CDT XR ANKLE 2 VIEWS LEFT PORTABLE STAT 06/13/2023 5:39 AM CDT XR ANKLE 2 VIEWS LEFT PORTABLE STAT 06/13/2023 4:02 AM CDT XR ANKLE 3 VIEWS LEFT STAT 06/13/2023 12:56 AM CDT from Last 3 Months Results * (ABNORMAL) CBC WITH AUTO DIFFERENTIAL (06/17/2023 5:50 PM CDT) WHITE BLOOD COUNT 7.7 4.5 - 11.0 thou/cu mm 06/17/2023 6:11 PM CDT [facility] RED BLOOD COUNT 3.92(L) 4.00 - 5.20 mil/cu mm 06/17/2023 6:11 PM CDT [facility] HEMOGLOBIN 14.3 12.0 - 16.0 g/dL 06/17/2023 6:11 PM CDT [facility] HEMATOCRIT 41.1 33.0 - 51.0 % 06/17/2023 6:[address] [facility] MCV 105(H) 80 - 100 fL 06/17/2023 6:[address] [facility] MCH 36.5(H) 26.0 - 34.0 pg 06/17/2023 6:[address] [facility] MCHC 34.8 32.0 - 36.0 g/dL 06/17/2023 6:[address] [facility] RDW 12.6 11.5 - 15.5 % 06/17/2023 6:[address] [facility] PLATELET COUNT 241 140 - 440 thou/cu mm 06/17/2023 6:[address] [facility] MPV 10.6 6.5 - 11.0 fL 06/17/2023 6:[address] [facility] % NEUT 59.0 % 06/17/2023 6:[address] [facility] % LYMPH 30.5 % 06/17/2023 6:[address] [facility] % MONO 7.4 % 06/17/2023 6:[address] [facility] % EOS 2.6 % 06/17/2023 6:[address] [facility] % BASO 0.5 % 06/17/2023 6:[address] [facility] ABSOLUTE NEUTROPHILS 4.5 1.7 - 7.0 thou/cu mm 06/17/2023 6:[address] [facility] ABSOLUTE LYMPHOCYTES 2.3 0.9 - 2.9 thou/cu mm 06/17/2023 6:[address] [facility] ABSOLUTE MONOCYTES 0.6 <0.9 thou/cu mm 06/17/2023 6:[address] [facility] ABSOLUTE EOSINOPHILS 0.2 <0.5 thou/cu mm 06/17/2023 6:[address] [facility] ABSOLUTE BASOPHILS 0.0 <0.3 thou/cu mm 06/17/2023 6:[address] [facility] Blood BLOOD SPECIMEN / Unknown Venipuncture / Unknown 06/17/2023 5:50 PM CDT 06/17/2023 5:53 PM CDT Ketty Osborn HEMATOLOGY [facility] [address] [place] [address] * (ABNORMAL) COMP METABOLIC PANEL (06/17/2023 5:50 PM CDT) SODIUM 139 136 - 145 mmol/L 06/17/2023 6:[address] [facility] POTASSIUM 4.8 3.5 - 5.1 mmol/L 06/17/2023 6:[address] [facility] CHLORIDE 110(H) 98 - 107 mmol/L 06/17/2023 6:[address] [facility] CO2,TOTAL 17(L) 22 - 29 mmol/L 06/17/2023 6:[address] [facility] ANION GAP 12 5 - 18 06/17/2023 6:[address] [facility] GLUCOSE 95 70 - 99 mg/dL 06/17/2023 6:[address] [facility] CALCIUM 9.4 8.6 - 10.0 mg/dL 06/17/2023 6:[address] [facility] BUN 15 6 - 20 mg/dL 06/17/2023 6:[address] [facility] CREATININE 1.02(H) 0.50 - 0.90 mg/dL 06/17/2023 6:[address] [facility] BUN/CREAT RATIO 15 10 - 20 6:[address] [facility] eGFR 70(L) >90 mL/min/1.7 3m2 06/17/2023 6:[address] [facility] Comment:As of 2021, eG FR is calculated by the CKD-EPI creatinine equation without race adjustment. ??eGFR can be influenced by muscle mass, exercise, and diet. ??The reported eGFR is an estimation only and is only applicable if the renal function is stable. ALBUMIN 4.4 4.0 - 4.9 g/dL 06/17/2023 6:31 PM CDT [facility] PROTEIN,TOTAL 7.7 6.0 - 8.0 g/dL 06/17/2023 6:31 PM CDT [facility] BILIRUBIN,TOTAL 0.4 0.0 - 1.2 mg/dL 06/17/2023 6:31 PM CDT [facility] ALK PHOSPHATASE 83 35 - 104 IU/L 06/17/2023 6:31 PM CDT [facility] ALT (SGPT) 11 10 - 35 IU/L 06/17/2023 6:31 PM CDT [facility] AST (SGOT) 28 10 - 35 IU/L 06/17/2023 6:31 PM CDT [facility] Blood BLOOD SPECIMEN / Unknown Venipuncture / Unknown 06/17/2023 5:50 PM CDT 06/17/2023 5:53 PM CDT Ketty Osborn DO CHEMISTRY [facility] [address] [place] [address] * CT ANKLE LEFT WO (06/16/2023 12:03 PM CDT) Anatomical Region Laterality Modality ANKLE L Computed Tomogra phy 06/16/2023 12:5 4 PM CDT Impressions 06/16/2023 12:54 PM CDT 1. Mildly displaced trimalleolar fracture. Mild lateral subluxation of the talus relative to the tibial plafond. 2. Small avulsion fracture of the anterior inferior tibiofibular ligament at the fibular insertion. 3. Small posterior fracture fragments in the ankle joint. 4. Medial and lateral subcutaneous edema. Please note that all CT scans at this facility use dose modulation, iterative reconstruction, and/or weight-based dosing when appropriate to reduce radiation dose to as low as reasonably achievable. Dictated by Nakul Mosquera MD @ 06/16/2023 12:54:35 PM (Electronically Signed) Narrative 06/16/2023 12:54 PM CDT For Patients: ??As a result of the Cures Act, medical imaging exams and procedure reports are released immediately into your electronic medical record. ??You may view this report before your referring provider. ??If you have questions, please contact your health care provider. EXAM: CT OF THE LEFT ANKLE, WITHOUT CONTRAST CLINICAL INDICATION: Evaluate trimalleolar fracture including the size and position of the posterior fragment. COMPARISON STUDIES: 06/13/2023 radiographs. TECHNICAL: Non-contrast CT of the ankle with axial images. Sagittal oblique and coronal oblique reformatted images were created. ?? FINDINGS: OSSEOUS STRUCTURES: Tibia: Vertical fracture of the posterior malleolus measures 2.2 cm RL x 1.9 cm CC x 0.9 cm AP. There are multiple interposed free fracture fragments at the medial fracture margin. 0.2 cm of diastasis at the posterior margin of the articular surface. Oblique fracture through the base of the medial malleolus with multiple punctate interposed free fracture fragments. 0.3 cm of displacement. Fibula: Oblique fracture of the distal fibular diaphysis and metaphysis with 0.3 cm of lateral and dorsal displacement of the distal fibula. Small avulsion fracture of the anterior inferior tibiofibular ligament at the fibular insertion. Talus: No fracture. Calcaneous: No fracture. Midfoot: No fracture of the navicular, cuboid, cuneiforms or metatarsal bases. JOINT SPACES: Ankle: Mild lateral subluxation of the talus, medial malleolar and fibular fracture fragments relative to the tibial plafond. 0.3 cm and 0.2 cm free fracture fragments posteriorly in the ankle joint. Subtalar, Talonavicular and Calcaneocuboid: Joint spaces are maintained. Midfoot and Midfoot-forefoot junction: Joint spaces are maintained. SOFT TISSUES: Moderate amount of medial and lateral subcutaneous edema. No subcutaneous hematoma. MUSCLES: No intramuscular mass or hematoma. No muscle atrophy. TENDONS: The Achilles tendon is intact. No subluxation of the peroneal tendons. No retracted tendon tear. Procedure Note Nakul Mosquera MD - 06/16/2023 For Patients: As a result of the 21st Century Cures Act, medical imagingexams and procedure reports are released immediately into your electronicmedical record. You may view this report before your referring provider.If you have questions, please contact your health care provider. EXAM: CT OF THE LEFT ANKLE, WITHOUT CONTRAST CLINICAL INDICATION: Evaluate trimalleolar fracture including the size and position of theposterior fragment. COMPARISON STUDIES: 06/13/2023 radiographs. TECHNICAL: Non-contrast CT of the ankle with axial images. Sagittal oblique andcoronal oblique reformatted images were created. FINDINGS: OSSEOUS STRUCTURES: Tibia: Vertical fracture of the posterior malleolus measures 2.2 cm RL x1.9 cm CC x 0.9 cm AP. There are multiple interposed free fracturefragments at the medial fracture margin. 0.2 cm of diastasis at theposterior margin of the articular surface. Oblique fracture through thebase of the medial malleolus with multiple punctate interposed freefracture fragments. 0.3 cm of displacement. Fibula: Oblique fracture of the distal fibular diaphysis and metaphysiswith 0.3 cm of lateral and dorsal displacement of the distal fibula. Smallavulsion fracture of the anterior inferior tibiofibular ligament at thefibular insertion. Talus: No fracture. Calcaneous: No fracture. Midfoot: No fracture of the navicular, cuboid, cuneiforms or metatarsalbases. JOINT SPACES: Ankle: Mild lateral subluxation of the talus, medial malleolar and fibularfracture fragments relative to the tibial plafond. 0.3 cm and 0.2 cm freefracture fragments posteriorly in the ankle joint. Subtalar, Talonavicular and Calcaneocuboid: Joint spaces are maintained. Midfoot and Midfoot-forefoot junction: Joint spaces are maintained. SOFT TISSUES: Moderate amount of medial and lateral subcutaneous edema. No subcutaneoushematoma. MUSCLES: No intramuscular mass or hematoma. No muscle atrophy. TENDONS: The Achilles tendon is intact. No subluxation of the peroneal tendons. Noretracted tendon tear. IMPRESSION: 1. Mildly displaced trimalleolar fracture. Mild lateral subluxation of thetalus relative to the tibial plafond. 2. Small avulsion fracture of the anterior inferior tibiofibular ligamentat the fibular insertion. 3. Small posterior fracture fragments in the ankle joint. 4. Medial and lateral subcutaneous edema. Please note that all CT scans at this facility use dose modulation,iterative reconstruction, and/or weight-based dosing when appropriate toreduce radiation dose to as low as reasonably achievable. Dictated by Nakul Mosquera MD @ 06/16/2023 12:54:35 PM (Electronically Signed) Esteban Santiago DPM CT * MODERATE SEDATION (06/13/2023 7:12 AM CDT) Narrative Guille Vizcaino MD - 06/13/2023 7:12 AM CDT Guille Vizcaino MD ? 06/13/2023 ??7:14 AM MODERATE SEDATION Date/Time: 06/13/2023 7:12 AM Performed by: Guille Vizcaino MD Authorized by: Guille Vizcaino MD ?? Consent: ??Consent obtained: ??Written Indications: ??Procedure performed: ??Fracture reduction ??Procedure necessitating sedation performed by: ??Physician performing sedation ??Intended level of sedation: ??Moderate Pre-sedation assessment: ??ASA classification: class 1 - normal, healthy patient ?Mouth opening: ??2 finger widths ??Thyromental distance: ??2 finger widths ??Mallampati score: ??I - soft palate, uvula, fauces, pillars visible ??Neck mobility: normal ?Pre-sedation assessments completed and reviewed: airway patency, anesthesia/sedation history, hydration status, mental status, pain level and respiratory function ?History of difficult intubation: no ?? Immediate pre-procedure details: ??Reassessment: Patient reassessed immediately prior to procedure ?Reviewed: vital signs, relevant labs/tests and NPO status ?Verified: bag valve mask available, emergency equipment available, intubation equipment available, IV patency confirmed, oxygen available and suction available ?? Procedure details (see MAR for exact dosages): ??Sedation: ??Propofol ??Intra-procedure monitoring: ??Blood pressure monitoring, frequent LOC assessments, athletic monitor, frequent vital sign checks, continuous pulse oximetry and continuous capnometry ??Intra-procedure events: hypoxia ?Intra-procedure events comment: ??Brief desaturation to high 80's. ??Intra-procedure management: ??Supplemental oxygen ??Total sedation time (minutes): ??10 ??Achieved level of sedation: ??Moderate Post-procedure details: ??Attendance: Constant attendance by certified staff until patient recovered ?Recovery: Patient returned to pre-procedure baseline ?Estimated blood loss (see I/O flowsheets): no ?Post-sedation assessments completed and reviewed: airway patency, cardiovascular function, hydration status, mental status, nausea/vomiting, pain level, respiratory function and temperature ?Procedure completion: ??Tolerated well, no immediate complications Guille Vizcaino MD NURSING - TRE[facility] * FRACTURE AND DISLOCATION (06/13/2023 7:10 AM CDT) Narrative Guille Vizcaino MD - 06/13/2023 7:10 AM CDT Guille Vizcaino MD ? 06/13/2023 ??7:14 AM FRACTURE AND DISLOCATION Date/Time: 06/13/2023 7:10 AM Performed by: Guille Vizcaino MD Authorized by: Guille Vizcaino MD ?? Consent: ??Consent obtained: ??Written ??Consent given by: ??Patient [place] protocol: ??Patient identity confirmed: ??Verbally with patient and arm band Injury: ??Injury location: ??Ankle ??Ankle injury location: ??L ankle ??Ankle fracture type: trimalleolar ?? Pre-procedure details: ??Distal neurologic exam: ??Normal ??Distal perfusion: distal pulses strong and brisk capillary refill ?Range of motion: reduced ?? Sedation: ??Sedation type: ??Deep Anesthesia: ??Anesthesia method: ??None Procedure details: ??Manipulation performed: yes ?Reduction successful: yes ?X-ray confirmed reduction: yes ?Immobilization: ??Splint ??Splint type: ??Ankle stirrup (stirrup with posterior slab) ??Supplies used: ??Plaster, elastic bandage and cotton padding Post-procedure details: ??Distal neurologic exam: ??Normal ??Distal perfusion: distal pulses strong, brisk capillary refill and unchanged ?Range of motion: unchanged ?Procedure completion: ??Tolerated well, no immediate complications Guille Vizcaino MD PROCEDURE ORD * XR ANKLE 2 VIEWS LEFT PORTABLE (06/13/2023 6:40 AM CDT) Only the most recent of4 resultswithin the time period is included. Anatomical Region Laterality Modality ANKLES, ANKLE L Digital Radiogra phy 06/13/2023 7:16 AM CDT Narrative 06/13/2023 7:16 AM CDT For Patients: ??As a result of the Cures Act, medical imaging exams and procedure reports are released immediately into your electronic medical record. ??You may view this report before your referring provider. ??If you have questions, please contact your health care provider. INDICATION: Postreduction. TECHNIQUE: Two views of the left ankle. COMPARISON: Radiograph from same day at 06:00. FINDINGS/IMPRESSION: Interval placement of a splint, which obscures fine osseous detail. There is slight increase in medial tibiotalar joint space widening and lateral talar subluxation when compared to prior. Additionally, there is mild increase in distal fibular fracture displacement, now posteriorly displaced by approximately 4 mm. Otherwise, the medial and posterior malleolar fractures are not significantly changed. Dictated by Cassandra Goetz MD @ 06/13/2023 7:16:51 AM (Electronically Signed) Procedure Note Cassandra Goetz, - 06/13/2023 For Patients: As a result of the Cures Act, medical imagingexams and procedure reports are released immediately into your electronicmedical record. You may view this report before your referring provider.If you have questions, please contact your health care provider. INDICATION: Postreduction. TECHNIQUE: Two views of the left ankle. COMPARISON: Radiograph from same day at 06:00. FINDINGS/IMPRESSION: Interval placement of a splint, which obscures fine osseous detail. Thereis slight increase in medial tibiotalar joint space widening and lateraltalar subluxation when compared to prior. Additionally, there is mildincrease in distal fibular fracture displacement, now posteriorlydisplaced by approximately 4 mm. Otherwise, the medial and posteriormalleolar fractures are not significantly changed. Dictated by Cassandra Goetz MD @ 06/13/2023 7:16:51 AM (Electronically Signed) Guille Vizcaino MD GENERAL IMAGING * XR ANKLE 3 VIEWS LEFT (06/13/2023 12:56 AM CDT) Anatomical Region Laterality Modality ANKLES, ANKLE L Digital Radiogra phy 06/13/2023 1:13 AM CDT Impressions 06/13/2023 1:13 AM CDT 1. Displaced fractures of the medial and lateral malleoli are noted. 2. Mild valgus tilt of the talar dome is noted. Correlation with physical exam is recommended to exclude ankle instability. Dictated by: Len Kirby MD @ 06/13/2023 01:13:00 (Electronically Signed) Narrative 06/13/2023 1:13 AM CDT For Patients: ??As a result of the Cures Act, medical imaging exams and procedure reports are released immediately into your electronic medical record. ??You may view this report before your referring provider. ??If you have questions, please contact your health care provider. INDICATION: Ankle injury from Trauma TECHNIQUE: Ankle radiograph 3 views left COMPARISON: None FINDINGS: Bone: Displaced fractures of the medial and lateral malleoli are noted. Mild valgus tilt of the talar dome is noted. Joint: The ankle mortise joint and the visualized hindfoot joints are unremarkable in appearance. No significant ankle effusion is seen. Soft tissue: The Kager fat pad and the Achilles` tendon are normal in appearance. No radiopaque foreign bodies are seen. Procedure Note Len Kirby MD - 06/13/2023 For Patients: As a result of the Cures Act, medical imagingexams and procedure reports are released immediately into your electronicmedical record. You may view this report before your referring provider.If you have questions, please contact your health care provider. INDICATION: Ankle injury from Trauma TECHNIQUE: Ankle radiograph 3 views left COMPARISON: None FINDINGS: Bone: Displaced fractures of the medial and lateral malleoli are noted.Mild valgus tilt of the talar dome is noted. Joint: The ankle mortise joint and the visualized hindfoot joints areunremarkable in appearance. No significant ankle effusion is seen. Soft tissue: The Kager fat pad and the Achilles` tendon are normal inappearance. No radiopaque foreign bodies are seen. IMPRESSION: 1. Displaced fractures of the medial and lateral malleoli are noted. 2. Mild valgus tilt of the talar dome is noted. Correlation with physicalexam is recommended to exclude ankle instability. Dictated by: Len Kirby MD @ 06/13/2023 01:13:00 (Electronically Signed) Guille Vizcaino MD GENERAL IMAGING from Last 3 Months Care Teams Inorganic Chemistry Professor Relationship Specialty Start Date End Date Ketty Osborn DO [address] [place] [address] PCP - General Internal Medicine 06/07/21 Jayce Ernandez MD [address] [place] [address] Neurology 09/26/21 Jose Ho MD [address] [place] [address] Nephrology 09/26/21 Manuel Dickson MD [address] [place] [address] Surgery - Urology 09/26/21
[2023-06-19] MEDS: LACTATED RINGERS 1000 ML 1,000 ML 100 ML IV ×2 (06:40→08:25)
[2023-06-19] MEDS: SODIUM CHLORIDE 0.9 % (FLUSH) 10 ML SYRINGE IVF (06:45)
[2023-06-19] MEDS: MIDAZOLAM HCL 1 MG/ML inj IVP (07:27)
[2023-06-19] MEDS: fentaNYL 100 MCG/2 ML inj IVP (07:27)
--- NOTE | 2023-06-19 07:30 | XR_ITS ---
Patient: JORDON ALVARADO Facility:?[facility] Patient ID:?[id number] Site Patient ID:?[id number] Site :?[id number] Study:?XRay-Extremity Left Ankle w/ c-arm-06/19/2023 10:17:24 AM Ordering Physician:?Esteban Santiago Final Report: Indication: Trimalleolar ORIF Technique: Seven fluoroscopic images of the left ankle. Fluoroscopic time 52.6 seconds. IMPRESSION: Fluoroscopic guidance for open reduction internal fixation about the distal tibial and fibular fractures along with syndesmotic fusion. Dictated by Murray Sheikh MD @ 06/19/2023 12:09:27 PM Signed by:?Murray Sheikh MD @06/19/2023 12:09:27 PM (Electronic Signature)
[2023-06-19] MEDS: MIDAZOLAM HCL 1 MG/ML inj 2 MG IVP (07:33)
--- NOTE | 2023-06-19 07:39 | SUR.PREOP ---
TIME?OUT:?0727 PT/RN/MDA?VERIFICATION?OF?SURGICAL?SITE Left Ankle,?PROCEDURE Nerve Block,?AND?CONSENT OBTAINED?PRIOR?TO?INVASIVE?PROCEDURE.
[2023-06-19] MEDS: CEFAZOLIN 2 GM INJ IVP (07:45)
--- NOTE | 2023-06-19 09:30 | P.NB_ITS ---
Nerve Block Nerve Block Time Seen by Provider: 07:16 Date Seen: 06/19/23 Type of block requested by surgeon for post-operative analgesia: adductor canal Side: left Time out performed: Yes Verification of patient name: Yes Verification of date of : Yes Site marking: site marked Name of person performing procedure: Sang Elias Continuous monitoring Was continuous monitoring of O2 sat, B/P, manager cardiac cath, recorded every 15 minutes?: Yes Procedure Checklist: sterile prep, needles and gloves Ultrasound guided. Images saved: Yes Medications given in 5ml increments after negative aspiration: Ropivicaine %: 0.5 mL: 30 Needle gauge: 20 Decadron (mg): 10 Precedex (mcg): 25 Patient tolerated procedure well: Yes Additional comments: Injected in 5mL increments after negative aspiration Block Charges Block Charge (with Pro Fee): Femoral Nerve Use of Ultrasound Machine for Block: Yes- US Guidance/pain block
--- NOTE | 2023-06-19 09:31 | P.NB_ITS ---
Nerve Block Nerve Block Time Seen by Provider: 07:16 Date Seen: 06/19/23 Type of block requested by surgeon for post-operative analgesia: adductor canal Side: left Time out performed: Yes Verification of patient name: Yes Verification of date of : Yes Site marking: site marked Name of person performing procedure: Sang Elias Continuous monitoring Was continuous monitoring of O2 sat, B/P, vehicle monitor technician, recorded every 15 minutes?: Yes Procedure Checklist: sterile prep, needles and gloves Ultrasound guided. Images saved: Yes Medications given in 5ml increments after negative aspiration: Ropivicaine %: 0.5 mL: 30 Needle gauge: 20 Decadron (mg): 10 Precedex (mcg): 25 Patient tolerated procedure well: Yes Additional comments: Injected in 5mL increments after negative aspiration Block Charges Block Charge (with Pro Fee): Femoral Nerve Use of Ultrasound Machine for Block: Yes- US Guidance/pain block
--- NOTE | 2023-06-19 09:34 | P.NB_ITS ---
Nerve Block Nerve Block Time Seen by Provider: 07:16 Date Seen: 06/19/23 Type of block requested by surgeon for post-operative analgesia: popliteal Side: left Time out performed: Yes Verification of patient name: Yes Verification of date of : Yes Site marking: site marked Name of person performing procedure: Sang Albatracy Continuous monitoring Was continuous monitoring of O2 sat, B/P, laboratory monitor, recorded every 15 minutes?: Yes Procedure Checklist: sterile prep, needles and gloves Ultrasound guided. Images saved: Yes Medications given in 5ml increments after negative aspiration: Ropivicaine %: 0.5 mL: 15 Needle gauge: 20 Patient tolerated procedure well: Yes Additional comments: Injected in 5mL increments after negative aspiration Block Charges Block Charge (with Pro Fee): Sciatic Nerve Use of Ultrasound Machine for Block: Yes- US Guidance/pain block
[2023-06-19] MEDS: BUPIVACAINE 0.25% 30 ML INJECTION (10:30)
--- NOTE | 2023-06-19 10:54 | W.PODPROC_ITS ---
Date of Procedure: 06/19/23 Surgeon: Esteban Santiago DPM Pre-op Diagnosis: 1. Trimalleolar ankle fracture left 2. Ankle syndesmotic disruption left Post-op Diagnosis: 1. Trimalleolar ankle fracture left 2. Ankle syndesmotic disruption left Type of Procedure: 1. ORIF trimalleolar ankle fracture without fixation of the posterior malleolus 2. ORIF ankle syndesmosis left Indications: Patient sustained a trimalleolar ankle fracture with syndesmotic disruption after a fall during a seizure. She had a highly unstable ankle requiring surgical intervention. I reviewed the procedure, recovery, expectation potential complications. These include but are not limited to: Poor wound healing, infection, nonunion, delayed union, malunion, posttraumatic arthritis, continued pain, complex regional pain syndrome, hardware irritation, nerve injury, deep venous thrombosis, pulmonary embolism possible . She understands risks written consent was obtained. All questions answered. Site marked. Procedure Description: Patient brought the operating room placed supine position on operating table. She had a preoperative popliteal adductor block by Anesthesia. Anesthesia then administered a spinal anesthetic. She was prepped and draped in a sterile fashi on. Standard time-out protocol followed. Left limb was exsanguinated the tourniquet inflated to 300 mm Hg. Linear incisions made over the lateral distal fibula. Incision was carried down through skin subcutaneous tissues. Significant periosteal disruption was identified fracture site the periosteum freed up along the fibula. Fracture site was then debrided and thoroughly irrigated normal sterile saline. Fracture was reduced with a reduction forceps to anatomic alignment. 3.0 mm cortical screw was placed using standard lag technique across the fracture. Excellent fixation noted. C-arm confirmed anatomic alignment of the fibula. Lateral 1/3 tubular plate was then applied with 4.0 cancellous screws x2 placed distal to the fracture and 3.5 mm cortical screws x3 placed proximal the fracture. C-arm confirmed anatomic alignment and appropriate placement of the plate. We then turned our attention to the medial ankle where a linear incision was made. Blunt dissection carried down to the periosteum where again periosteal stripping was noted. Fracture was identified and debrided. Fracture was reduced to anatomic alignment and checked with C-arm. Guide pin was placed into the medial malleolus and across the fracture into the tibia. A hook plate was then applied medially and its position checked with C-arm. Once in place a 4.0 cannulated screw was inserted which compressed and further reduce the fracture into perfect anatomic alignment as well as anchoring the distal tines of the hook plate to the bone. 3.5 mm cortical screws x2 were placed through the proximal plate into the tibia. C-arm confirmed anatomic alignment of the fracture. There is still diastasis at the syndesmosis. Large clamp was then placed between the tibia and fibula and the syndesmosis reduced. 2.5 mm drill was used to drill through the fibular plate into the tibia inferior to the inter frag screw and superior to the inter frag screw. 3.5 mm cortical screw fully threaded was then inserted with the syndesmosis reduced and the ankle dorsiflexed. Clamp was removed and the ankle stressed. Syndesmosis and medial gutter remained anatomic. Further C-arm images were obtained and the posterior malleolar fragment was less than 25% of the joint surface and was perfectly aligned. No further fixation necessary. Wounds were thoroughly irrigated normal sterile saline. Tourniquet was released and no active bleeding noted. Deep fascia was reapproximated with 3-0 Vicryl. Subcutaneous tissues reapproximated with 3-0 Vicryl. Skin closed with sylvia. An additional 20 mL of 0.5% Marcaine plain was injected along the incision sites. Sterile dressing was applied. Well-padded below-knee posterior splint was placed. Patient was transferred from OR to PACU vital signs stable vascular status intact. She was discharged home per same-day protocol. She is given oxycodone and Vistaril for pain. She is nonweightbearing with crutches or knee walker. She will follow up in clinic next week. She will start aspirin therapy tomorrow. Anesthesia: regional, local and spinal Hemostasis: thigh Estimated blood loss (mL): 10 Implants: Arthrex 1/3 tubular plate, Arthrex medial malleolus a plate, 4.0 cannulated screw x1, 3.0 cortical screw x1, 3.5 cortical screw times 7, 4.0 cancellous screw x2. Disposition: PACU
--- NOTE | 2023-07-08 07:00 | W.ANESCHARGE ---
Anesthesia Charges Start Date/Time Anesthesia Start Date: 06/19/23 Anesthesia Start Time: 07:30 Stop Date/Time Anesthesia Stop Date: 06/19/23 Anesthesia Stop Time: 10:47
== END 2023-06-19 12:06 | disposition home or self-care (01) ==
PROVIDERS: PCP Internal Medicine; Visit Provider Podiatrist
PROC: (CPT 27822; principal; 2023-06-19 07:30)
DX: S82.852A Displaced trimalleolar fracture of left lower leg, initial encounter for closed fracture (principal); S93.432A Sprain of tibiofibular ligament of left ankle, initial encounter; G89.18 Other acute postprocedural pain
CPT/HCPCS: 27822; 27829; 01480; 64445; 64447; 73610; 76000; 76942; C1713; J0665; J0690; J1100; J1170; J2250; J2405; J2704; J2795; J3010; J3490; J7120